=== PATIENT | male | born 1980 | race Caucasian/White ===

== ENCOUNTER 2022-05-17 11:52 | Inpatient (IN) | payer BC, MEDICAID ==
[~2022-05-17] VITALS: Ht 172.7 cm; Wt 77.1 kg
[2022-05-17 11:56] VITALS: BP 136/99
[2022-05-17] MEDS ORDERED: ACETAMINOPHEN EXTRA STRENGTH 500 MG TAB PO ONE (12:10)
[2022-05-17] MEDS ORDERED: NACL 0.9% 1,000 ML IV ONE ×3 (12:10→14:05)
--- NOTE | 2022-05-17 12:16 | NUR ---
ASSUMED PATIENT CARE, NURSING ASSESSMENT COMPLETED.
--- NOTE | 2022-05-17 12:30 | NUR ---
EKG COMPLETED, STARTED PATIENT ON CARDIAC [id number].
[2022-05-17] MEDS ORDERED: DOXYCYCLINE 100 MG in DEXTROSE 5% 100 ML IV ONE (12:35)
[2022-05-17 13:32] LABS: ALBUMIN 2.9 g/dL (3.4-5.0); ANION GAP 17.8 (8-16); CARBON DIOXIDE 16.5 mmol/L (21-32); CREATININE 3.2 mg/dL (0.6-1.3); POTASSIUM 4.3 mmol/L (3.5-5.1); TOTAL BILIRUBIN 0.4 mg/dL (0.0-1.0)
[2022-05-17 13:33] LABS: BASOPHILS % (AUTO) 0.1 % (0.0-2.0); EOSINOPHILS % (AUTO) 0.1 % (0.0-4.0); HEMATOCRIT 31.1 % (36-52); HEMOGLOBIN 10.1 g/dL (12.0-18.0); LYMPHOCYTES # (AUTO) 0.6 K/uL (2.0-11.5); LYMPHOCYTES % (AUTO) 3.8 % (20.5-51.1); MEAN CORPUSCULAR HEMOGLOBIN 29 pg (27-31); MEAN CORPUSCULAR HGB CONC 33 g/dL (33-37); MEAN CORPUSCULAR VOLUME 87.9 fL (80-94); MONOCYTES # (AUTO) 1.1 K/uL (0.8-1.0); MONOCYTES % (AUTO) 6.5 % (1.7-9.3); NEUTROPHILS # (AUTO) 15.2 K/uL (1.8-7.7); NEUTROPHILS % (AUTO) 89.5 % (42.2-75.2); PLATELET COUNT (AUTO) 179 K/uL (140-450); RED BLOOD CELL COUNT(AUTO) 3.54 MIL/uL (4.20-6.10); RED CELL DISTRIBUTION WIDTH 14.6 % (11.6-13.7)
[2022-05-17 13:37] LABS: LIPASE 260 U/L (73-393)
[2022-05-17] MEDS ORDERED: DOXYCYCLINE 100 MG VIAL IV ONE (13:43)
[2022-05-17] MEDS ORDERED: cefTRIAXone 1,000 MG VIAL ONE (13:43)
[2022-05-17] MEDS ORDERED: LISI10TA30 PO (13:47)
[2022-05-17] MEDS ORDERED: PRED20TA6 PO (13:47)
[2022-05-17] MEDS ORDERED: ASPI-1821 PO (13:51)
[2022-05-17] MEDS ORDERED: PANT40EC56 PO (13:51)
[2022-05-17] MEDS ORDERED: CHOL100084 PO (13:51)
[2022-05-17] MEDS ORDERED: MYCO500T3 PO (13:51)
[2022-05-17] MEDS ORDERED: ROSU40TA19 PO (13:51)
[2022-05-17] MEDS ORDERED: HYDR200T5 PO (13:51)
[2022-05-17] MEDS ORDERED: ALLO100T21 PO (13:51)
[2022-05-17] MEDS ORDERED: CARV20CP PO (13:51)
[2022-05-17] MEDS ORDERED: NIFE30TA36 PO (13:51)
[2022-05-17 14:54] LABS: APPEARANCE,URINE CLEAR (CLEAR); BILIRUBIN,URINE 1+ (NEGATIVE); BLOOD, URINE 1+ (NEGATIVE); COLOR,URINE YELLOW (YELLOW); LEUKOCYTE ESTERASE ,URINE NEGATIVE (NEGATIVE); NITRITE, URINE NEGATIVE (NEGATIVE); UGLUCOSE NEGATIVE (NEGATIVE)
[2022-05-17 15:36] LABS: WBC,URINE 0-5 /HPF (0-5); YEAST,URINE Few /HPF (None Seen)
[2022-05-17] MEDS ORDERED: ONDANSETRON 4 MG/2 ML VIAL IVP PRN (15:40)
[2022-05-17] MEDS ORDERED: MAG SULF 2000 MG/WATER PREMIX 50 ML IV PRN (15:40)
[2022-05-17] MEDS ORDERED: LORazepam 2 MG/ML VIAL IVP PRN (15:40)
[2022-05-17] MEDS ORDERED: ACETAMINOPHEN 325 MG TAB PO PRN (15:40)
[2022-05-17] MEDS ORDERED: MORPHINE SULFATE 2 MG/ML SYR IVP PRN (15:40)
[2022-05-17] MEDS ORDERED: ZOLPIDEM 10 MG TAB PO PRN (15:40)
[2022-05-17] MEDS ORDERED: POTASSIUM CHLORIDE 10 MEQ TABER PO PRN (15:40)
[2022-05-17] MEDS ORDERED: DOCUSATE SODIUM 100 MG GELCAP PO PRN (15:40)
[2022-05-17] MEDS ORDERED: carvediloL 12.5 MG TAB PO SCH (16:10)
[2022-05-17] MEDS: predniSONE 20 MG TAB PO SCH (16:16)
[2022-05-17 16:51] VITALS: BP 125/92
--- NOTE | 2022-05-17 16:51 | NUR ---
PT ARRIVED TO [facility] UNIT VIA GURNEY, AMBULATED TO BED. AOX4, ABLE TO VERBALIZE NEEDS. SKIN WARM AND DRY TO TOUCH. RESPIRATIONS EVEN AND UNLABORED ON RA. NO DISTRESS NOTED. IV ON L A/C 20G SL. CALL LIGHT WITHIN REACH. ALL SAFETY PRECAUTIONS IN PLACE.
--- NOTE | 2022-05-17 17:10 | NUR ---
DISPO AND MEDICAL DECISION MAKING, INPATIENT ADMISSION FOR FURTHER MANAGEMENT. PATIENT UPDATED OF PLAN OF CARE, CARE ENDORSED TO BECKY PETTIT.
--- NOTE | 2022-05-17 19:08 | NUR ---
ENDORSED PT TO GOVERNMENT AUDITOR NURSE FOR CONTINUITY OF CARE. PT IN STABLE CONDITION.
--- NOTE | 2022-05-17 19:15 | NUR ---
RECEIVED PT IN BED, AWAKE,ALERT AND ORIENTED X 4. DENIES PAIN. DENIES SHORTNESS OF BREATH. SKIN WARM AND DRY TO TOUCH. SAFETY PRECAUTION IN PLACE, CALL LIGHT IN REACH.
[2022-05-17] MEDS: ALBUTEROL 0.083% 2.5 MG/3 ML NEBU INH PRN ×2 (19:45→21:44)
[2022-05-17 20:00] VITALS: BP 108/75
[2022-05-17] MEDS ORDERED: PIPERACILLIN/TAZOBACTAM 3.375 GM VIAL IV ONE (20:01)
[2022-05-17] MEDS: MYCOPHENOLATE 250 MG CAP PO SCH ×2 (20:12→20:13)
[2022-05-17] MEDS: PIPERACILLIN/TAZOBACTAM 3.375 GM in DEXTROSE 5% 50 ML IV SCH (20:13)
[2022-05-17] MEDS: HYDROXYCHLOROQUINE 200 MG TAB PO SCH (20:13)
[2022-05-18] VITALS: BP 112/71
[2022-05-18 04:00] VITALS: BP 123/69
[2022-05-18] MEDS ORDERED: PIPERACILLIN/TAZOBACTAM 3.375 GM VIAL IV ONE (04:00)
[2022-05-18] MEDS: PIPERACILLIN/TAZOBACTAM 3.375 GM in DEXTROSE 5% 50 ML IV SCH ×3 (04:21→21:03)
--- NOTE | 2022-05-18 06:12 | NUR ---
PATIENT IS ASLEEP. NO DISTRESS NOTED. ALL NEEDS ATTENDED TO. SAFETY PRECAUTIONS MAINTAINED DURING THE SHIFT, CALL LIGHT REMAINED WITHIN REACH.
[2022-05-18 07:20] LABS: BASOPHILS % (AUTO) 0.1 % (0.0-2.0); HEMATOCRIT 27.2 % (36-52); HEMOGLOBIN 8.9 g/dL (12.0-18.0); LYMPHOCYTES # (AUTO) 0.5 K/uL (2.0-11.5); LYMPHOCYTES % (AUTO) 3.3 % (20.5-51.1); MEAN CORPUSCULAR HEMOGLOBIN 29 pg (27-31); MEAN CORPUSCULAR HGB CONC 33 g/dL (33-37); MEAN CORPUSCULAR VOLUME 87.3 fL (80-94); MONOCYTES # (AUTO) 0.6 K/uL (0.8-1.0); MONOCYTES % (AUTO) 4.2 % (1.7-9.3); NEUTROPHILS # (AUTO) 13.5 K/uL (1.8-7.7); NEUTROPHILS % (AUTO) 92.4 % (42.2-75.2); PLATELET COUNT (AUTO) 169 K/uL (140-450); RED BLOOD CELL COUNT(AUTO) 3.11 MIL/uL (4.20-6.10); RED CELL DISTRIBUTION WIDTH 14.7 % (11.6-13.7); WHITE BLOOD COUNT (AUTO) 14.6 K/uL (4.8-10.8)
--- NOTE | 2022-05-18 07:30 | NUR ---
RECEIVED REPORT FROM NIGHTSHIFT NURSE. PT A/O X3. NO SOB OR RESPIRATORY DISTRESS. ON 2L NC. DENIES PAIN. AMBULATORY. TELE, SR. LAST BM THIS AM. LAC #20 SL. NEEDS ALL MET AT THIS TIME. ALL SAFETY MEASURES IN PLACE.
[2022-05-18 07:39] LABS: CARBON DIOXIDE 16.7 mmol/L (21-32); CREATININE 2.6 mg/dL (0.6-1.3); POTASSIUM 4.7 mmol/L (3.5-5.1)
[2022-05-18 08:00] VITALS: BP 144/104
[2022-05-18] MEDS: MYCOPHENOLATE 250 MG CAP PO SCH ×2 (08:59→21:03)
[2022-05-18] MEDS: predniSONE 20 MG TAB PO SCH ×3 (08:59→17:27)
[2022-05-18] MEDS: allopurinoL 100 MG TAB PO SCH (09:00)
[2022-05-18] MEDS: PANTOPRAZOLE 40 MG TABEC PO SCH (09:00)
[2022-05-18] MEDS: NIFEdipine 30 MG TABER PO SCH (09:00)
[2022-05-18] MEDS: ASPIRIN 81 MG TAB.CHEW PO SCH (09:01)
[2022-05-18] MEDS: carvediloL 12.5 MG TAB PO SCH (09:01)
--- NOTE | 2022-05-18 09:23 | NUR ---
PATIENT HAS BEEN SCREENED AND CATEGORIZED MODERATE NUTRITION RISK. PATIENT WILL BE SEEN WITHIN 3-5 DAYS OF ADMISSION. REVIEWED BY [facility] P[address]
[2022-05-18] MEDS: HYDROXYCHLOROQUINE 200 MG TAB PO SCH ×2 (09:48→21:03)
[2022-05-18 12:00] VITALS: BP 124/88
[2022-05-18] MEDS ORDERED: EPOETIN ALFA-EPBX 10,000 UNITS/ML VIAL IV SCH (12:00)
--- NOTE | 2022-05-18 12:00 | NUR ---
DC PLANNING ASSESSMENT COMPLETE PLEASE REFER TO ASSESSMENT FOR DETAILS PT REPORTS TENTATIVE DC PLAN IS TO RETURN HOME WITH SISTER PROVIDING TRANSPORTATION, WHEN MEDICALLY STABLE. Addendum: 05/19/22 at 0928 by Deepti CARBONE Amended: Links added.
--- NOTE | 2022-05-18 13:20 | NUR ---
PT OFF UNIT TO CT CHEST
[2022-05-18 16:00] VITALS: BP 122/83
--- NOTE | 2022-05-18 18:31 | NUR ---
HOURLY ROUNDS CONDUCTED THROUGHOUT MY SHIFT. PT STABLE. IN NO ACUTE DISTRESS. WILL GIVE BEDSIDE REPORT TO NIGHTSHIFT.
--- NOTE | 2022-05-18 19:21 | NUR ---
BEDSIDE REPORT GIVEN TO NIGHTSHIFT NURSEAUGUSTO FOR CONTINUITY OF CARE.
--- NOTE | 2022-05-18 19:22 | NUR ---
RECEIVED PT FROM MORNING SHIFT NURSE. PT IS AOX4, AMBULATORY, AOX4, ABLE TO VERBALIZE NEEDS AND ABLE TO FOLLOW COMMANDS. PT IS ON 2L NC AND ON REGULAR DIET. PT HAS IV ON LEFT AC GAUGE 20 SALINE LOCK. PT SKIN IS INTACT. NO COMPLAIN OF PAIN AT THIS TIME AND NO S/S OF RESPIRATORY DISTRESS NOTED. ALL SAFETY MEASURES IMPLEMENTED. BED IN LOW POSITION, BED WHEELS ON LOCKED AND CALL LIGHT WITHIN REACH.
[2022-05-18 20:00] VITALS: BP 127/83
--- NOTE | 2022-05-18 21:03 | NUR ---
ALL SCHEDULED AND PRESCRIBED MEDICATION WAS GIVEN TO PT PER MD ORDER. NO COMPLAIN OF PAIN AT THIS TIME AND NO S/S OF RESPIRATORY DISTRESS NOTED. ALL SAFETY MEASURES IMPLEMENTED. BED IN LOW POSITION, BED WHEELS ON LOCKED AND CALL LIGHT WITHIN REACH.
[2022-05-19] VITALS: BP 118/83
--- NOTE | 2022-05-19 | NUR ---
PT IS SLEEPING. CHEST RISE AND FALL SYMMETRICALLY NOTED. RESPIRATION IS EVEN AND UNLABORED. ALL SAFETY MEASURES IMPLEMENTED. BED IN LOW POSITION, BED WHEELS ON LOCKED AND CALL LIGHT WITHIN REACH.
--- NOTE | 2022-05-19 02:00 | NUR ---
CHECKED THE PT STILL SLEEPING. CHEST RISE AND FALL SYMMETRICALLY NOTED. RESPIRATION IS EVEN AND UNLABORED. ALL SAFETY MEASURES IMPLEMENTED. BED IN LOW POSITION, BED WHEELS ON LOCKED AND CALL LIGHT WITHIN REACH.
[2022-05-19 04:00] VITALS: BP 125/90
[2022-05-19] MEDS ORDERED: PIPERACILLIN/TAZOBACTAM 3.375 GM VIAL IV ONE (04:05)
[2022-05-19] MEDS: PIPERACILLIN/TAZOBACTAM 3.375 GM in DEXTROSE 5% 50 ML IV SCH ×2 (04:10→12:19)
[2022-05-19 07:24] LABS: HEMATOCRIT 27.7 % (36-52); HEMOGLOBIN 9.2 g/dL (12.0-18.0); LYMPHOCYTES # (AUTO) 0.5 K/uL (2.0-11.5); LYMPHOCYTES % (AUTO) 4.5 % (20.5-51.1); MEAN CORPUSCULAR HEMOGLOBIN 29 pg (27-31); MEAN CORPUSCULAR HGB CONC 33 g/dL (33-37); MEAN CORPUSCULAR VOLUME 86.6 fL (80-94); MONOCYTES # (AUTO) 0.6 K/uL (0.8-1.0); MONOCYTES % (AUTO) 5.3 % (1.7-9.3); NEUTROPHILS # (AUTO) 10.6 K/uL (1.8-7.7); NEUTROPHILS % (AUTO) 90.2 % (42.2-75.2); PLATELET COUNT (AUTO) 199 K/uL (140-450); RED CELL DISTRIBUTION WIDTH 14.2 % (11.6-13.7); WHITE BLOOD COUNT (AUTO) 11.8 K/uL (4.8-10.8)
[2022-05-19 07:54] LABS: ALBUMIN 2.8 g/dL (3.4-5.0); ANION GAP 16.6 (8-16); CARBON DIOXIDE 15.8 mmol/L (21-32); CREATININE 2.7 mg/dL (0.6-1.3); PHOSPHORUS 4.1 mg/dL (2.5-4.9); POTASSIUM 4.4 mmol/L (3.5-5.1); TOTAL BILIRUBIN 0.3 mg/dL (0.0-1.0)
[2022-05-19 08:00] VITALS: BP 134/93
[2022-05-19] MEDS: ALBUTEROL 0.083% 2.5 MG/3 ML NEBU INH PRN (08:23)
[2022-05-19] MEDS: HYDROXYCHLOROQUINE 200 MG TAB PO SCH (09:00)
[2022-05-19] MEDS ORDERED: VIT-B COMP/VIT-C/FOLIC ACID 1 TAB PO SCH (09:00)
[2022-05-19] MEDS: MYCOPHENOLATE 250 MG CAP PO SCH (09:51)
[2022-05-19] MEDS: ASPIRIN 81 MG TAB.CHEW PO SCH (09:51)
[2022-05-19] MEDS: carvediloL 12.5 MG TAB PO SCH (09:51)
[2022-05-19] MEDS: predniSONE 20 MG TAB PO SCH ×2 (09:53→13:00)
[2022-05-19] MEDS: NIFEdipine 30 MG TABER PO SCH (09:53)
[2022-05-19] MEDS: allopurinoL 100 MG TAB PO SCH (09:53)
[2022-05-19] MEDS: PANTOPRAZOLE 40 MG TABEC PO SCH (09:58)
[2022-05-19] MEDS ORDERED: AMOX-999 PO (10:39)
[2022-05-19 11:39] VITALS: BP 155/80
--- NOTE | 2022-05-19 11:46 | NUR ---
SATURATION 98% ON SUPPLEMENTAL OXYGEN AT 1 LPM VIA NC REMOVED FROM O2 FOR ROOM AIR TRIAL
[2022-05-19 12:00] VITALS: BP 125/75
--- NOTE | 2022-05-19 12:18 | NUR ---
SATURATION 98% ON ROOM AIR; TOLERATING WELL WITHOUT DISTRESS NOTED GOOD CHEST RISE
== END 2022-05-19 14:30 | disposition home or self-care (01) | DRG 720 ==
LOC: MED 11:52 → MMU 15:38 → MTU 16:32
PROVIDERS: ADMIT Family Medicine; ATTEND Family Medicine
DX: A41.9 Sepsis, unspecified organism (principal); N17.0 Acute kidney failure with tubular necrosis; J96.00 Acute respiratory failure, unspecified whether with hypoxia or hypercapnia; J18.9 Pneumonia, unspecified organism; M32.14 Glomerular disease in systemic lupus erythematosus; N18.4 Chronic kidney disease, stage 4 (severe); D63.8 Anemia in other chronic diseases classified elsewhere; R65.20 Severe sepsis without septic shock; R31.9 Hematuria, unspecified; I10 Essential (primary) hypertension; I12.9 Hypertensive chronic kidney disease with stage 1 through stage 4 chronic kidney disease, or unspecified chronic kidney disease; E78.5 Hyperlipidemia, unspecified; E55.9 Vitamin D deficiency, unspecified; R80.9 Proteinuria, unspecified; Z20.822 Contact with and (suspected) exposure to COVID-19; Z88.8 Allergy status to other drugs, medicaments and biological substances
CPT/HCPCS: 36415; 71045; 71250; 80048; 80053; 81001; 82306; 83605; 83690; 83735; 83880; 84100; 84443; 84484; 85025; 87040; 87045; 87070; 87081; 89055; 94640; 96361; 96365; 96368; 99291; J0696; J2543; J3490; J7060; J7512; J7517; J7613; Q0092; Q5106